=== PATIENT | male | born 1995 | race Caucasian/White ===

== ENCOUNTER 2022-01-09 13:57 | Emergency (ER) | payer OTHER, SELFPAY ==
--- NOTE | ~2022-01-09 | US_ITS ---
EXAMINATION: US scrotum doppler DATE: 01/09/2022 16:06 INDICATION: L testicular swelling . TECHNIQUE: Grayscale and Doppler ultrasound images of the testes were obtained. COMPARISON: None. FINDINGS: The right testis measures 4.1 x 2.7 x 2.1 cm. The left testis measures 3.5 x 2.8 x 2.6 cm. No testicular mass. There is normal vascular flow to both testes. The right epididymis is normal with normal vascular flow. The left epididymal body and tail are enlarged, heterogeneous, and display inc reased vascularity. There is no varicocele. Small bilateral hydroceles. Small extratesticular calcifi cation on the right. IMPRESSION: Left epididymitis Reviewed, dictated and finalized at location K. IMPRESSION: Left epididymitis
[2022-01-09 14:00] VITALS: BP 185/100; PULSE 100; RESP 16; TEMP 37.1; O2SAT 100
--- NOTE | 2022-01-09 14:26 | ED.GENADULT ---
HPI - General Adult General Chief complaint: Urogenital-Male <FELIPE Cifuentes Last Filed: 01/09/22 16:47> Stated complaint: groin pain <FELIPE Cifuentes Last Filed: 01/09/22 16:47> Time Seen by Provider: 01/09/22 14:15 <FELIPE Cifuentes Last Filed: 01/09/22 16:47> Source: patient <FELIPE Cifuentes Last Filed: 01/09/22 16:47> Mode of arrival: ambulatory <FELIPE Cifuentes Last Filed: 01/09/22 16:47> Limitations: no limitations <FELIPE Cifuentes Last Filed: 01/09/22 16:47> History of Present Illness HPI narrative: Patient is a 26-year-old male who presents the ED with report of left testicular pain and swelling. Patient reports he first noticed the pain and swelling 2 days ago. Pain worse with walking. Pain does radiate into his left-sided groin, but denies pain in his abdomen or back. No pain or swelling in right testicle. No redness or warmth of testicle, skin or genital lesions, penile discharge, dysuria, hematuria, nausea, vomiting, fevers. No concern for STDs. <FELIPE Cifuentes Last Filed: 01/09/22 16:47> Review of Systems Review of Systems: CONSTITUTIONAL: Denies fever, chills, or sweats. CARDIOVASCULAR: Denies chest pain. RESPIRATORY: Denies dyspnea. GASTROINTESTINAL: Denies abdominal pain, nausea, vomiting. GENITOURINARY: Reports left testicular pain and swelling, extending into left groin. Denies penile discharge, penile pain, genital lesions, dysuria or hematuria. SKIN: Denies redness or warmth of left testicle. MUSCULOSKELETAL: Denies back pain. <FELIPE Cifuentes Last Filed: 01/09/22 16:47> All systems reviewed & are unremarkable except as noted in HPI and below <FELIPE Cifuentes Last Filed: 01/09/22 16:47> [facility], [facility] Past Medical History Medical History: Medical History (Updated 01/09/22 @ 16:47 by Francy Leos PA-C) No pertinent past medical history <Francy Leos PA-C - Last Filed: 01/09/22 16:47> Surgical History Surgical History: Surgical History (Updated 01/09/22 @ 14:47 by Francy Leos PA-C) No pertinent past surgical history <Francy Leos PA-C - Last Filed: 01/09/22 16:47> Social History Social History: Social History (Updated 01/09/22 @ 14:47 by Francy Leos PA-C) Smoking status: Never smoker <Francy Leos PA-C - Last Filed: 01/09/22 16:47> Exam Narrative: GENERAL: Well appearing, morbidly obese, non-toxic, in no acute distress. HEAD: Normocephalic, atraumatic. NECK: Supple. No adenopathy, no masses. RESPIRATORY: Airway patent, respirations nonlabored. Clear to auscultation bilaterally, no rales, rhonchi, wheezing. CARDIOVASCULAR: Regular rate and rhythm without murmurs, rubs, or gallops. Peripheral pulses 2+ and equal bilaterally. ABDOMINAL: Soft, minimal tenderness to LLQ, no rebound or guarding. Nondistended, no hepatosplenomegaly. Normoactive BS. TESTICULAR: Uncircumcised male. Mild swelling of left sided scrotum, tenderness with palpation of left testicle diffusely, worst inferiorly and posteriorly. No redness or warmth of testicle. No penile discharge. MUSCULOSKELETAL: Moves all extremities. Strength/ROM intact without gross deformities. SKIN: Warm, dry, normal color. No rashes. NEURO: A&O X3. Speech clear. Cranial nerves II-XII grossly intact. Steady gait. No ataxic movements. PSYCHIATRIC: Appropriate mood and affect. Normal interaction. <Francy Leos PA-C - Last Filed: 01/09/22 16:47> Course [employer]/PA Physician Supervision For this encounter, I have reviewed the PA documentation, treatment plan and medical decision making: And I have had [id number] time with the patient. Discussed with the patient the diagnosis epididymitis discussed risks of sexual transmitted disease and need for treatment of sexually transmitted disease and always be evaluated we discussed
[2022-01-09 14:47] LABS: Appearance Urine Clear (Clear); Bilirubin Urine Negative (Negative); Blood Urine Trace-intact (Negative); Color Urine Yellow (Yellow); Glucose Urine UA Negative (Negative); Ketones Urine Negative (Negative); Leukocyte Esterase Ur 1+ LEU/UL (Negative); Nitrate Urine Negative (Negative); Protein Urine Negative (Negative); Specific Grav Ur 1.015 (1.001-1.035); Urobilinogen Urine 0.2 mg/dL (<2.0); pH Urine 6.5 (5.0-9.0)
[2022-01-09 14:53] LABS: Bacteria Urine Trace /hpf; Mucus Urine Rare /lpf; Squamous Epithelial Cell Urine Occasional /hpf (Few); WBC Urine 21-30 /hpf
[2022-01-09 14:54] LABS: Add Urine Microscopic? YES
[2022-01-09] MEDS: ACETAMINOPHEN 500 MG TABLET 1000 MG PO (15:03)
[2022-01-09] MEDS: levoFLOXacin 500 MG TABLET PO (16:53)
[2022-01-09] MEDS: cefTRIAXone 1 GM VIAL 0.5 GM IM (16:53)
[2022-01-09] MEDS: LIDOCAINE HCL 1% PF 30 ML VIAL (16:53)
--- NOTE | 2022-01-09 17:22 | PC.NURSE ---
PT LEFT PRIOR TO DC VS BEING TAKEN
== END 2022-01-09 17:23 | disposition home or self-care (01) ==
PROVIDERS: Physician Assistant; Emergency Provider Emergency Medicine
DX: N45.1 Epididymitis (principal); R82.998 Other abnormal findings in urine
CPT/HCPCS: 76870; 81001; 87086; 93976; 96372; 99284; A9270; J0696